=== PATIENT | male | born 1945 | race Asian ===

== ENCOUNTER → 2019-03-22 | Outpatient (CLI) | payer MEDICARE, BC ==
--- NOTE | 2019-03-22 14:20 | RADRPT ---
Vent Rate: 58 bpm RR Interval: 1040 msec LA Interval: 161 msec QRS Duration: 103 msec QT Interval: 430 msec QTC Interval: 422 msec P-R-T [place]: 77 - 76 - 60 degrees Sinus rhythm...normal P axis, V-rate 50- 99 Electronically Signed By: Rigoberto Bedolla
== END | disposition home or self-care (01) ==
LOC: EKG 11:03
PROVIDERS: ATTEND Internal Medicine
DX: I10 Essential (primary) hypertension (principal); E11.9 Type 2 diabetes mellitus without complications; E78.00 Pure hypercholesterolemia, unspecified
CPT/HCPCS: 93005